=== PATIENT | male | born 1970 | race Caucasian/White ===

== ENCOUNTER 2021-12-23 07:00 | Outpatient (CLI) | payer BC, SELFPAY ==
--- NOTE | 2021-12-23 07:15 | CRLHL7_ITS ---
For Patients: As a result of the Century Cures Act, medical imaging exams and procedure reports are released immediately into your electronic medical record. You may view this report before your referring provider. If you have questions, please contact your health care provider. INDICATION: ABDOMINAL PAIN COMPARISON: none TECHNIQUE: Real time cottrell scale imaging and color Doppler analysis was performed of the right upper quadrant. FINDINGS: The patient`s liver is of normal size and has diffusely increased echogenicity. There is a normal appearance of the hepatic IVC and proximal abdominal aorta. There is no evidence of ascites. The gallbladder is absent. The common bile duct is of normal size and measures 6 mm in diameter at the level of the joan hepatis. The visualized pancreas appears normal. There is no evidence of a stone or hydronephrosis within the right kidney. The right kidney measures 12.8 cm in length. Postop changes appendectomy with scar tissue noted in the subcutaneous tissues. No incisional hernia. IMPRESSION: Hepatic steatosis. Status post cholecystectomy and appendectomy with right lower quadrant abdominal wall scar tissue. Dictated by Eleazar Moise MD @ 12/23/2021 8:48:14 AM (Electronically Signed)
== END 2021-12-23 07:01 | disposition home or self-care (01) ==
PROVIDERS: PCP Nurse Practitioner Family; Visit Provider Surgery
DX: R10.9 Unspecified abdominal pain (principal); K76.0 Fatty (change of) liver, not elsewhere classified
CPT/HCPCS: 76705

== ENCOUNTER 2022-03-10 10:43 | Outpatient (CLI) | payer BC, SELFPAY ==
[2022-03-10 10:59] LABS: Hemoglobin A1C* 6.2 % (0-5.6)
[2022-03-10 13:59] LABS: Chloride* 104 mmol/L (96-114)
[2022-03-10 14:00] LABS: Potassium* 4.1 mmol/L (3.6-5.1); Sodium* 140 mmol/L (135-149)
[2022-03-10 14:02] LABS: Creatinine* 0.9 mg/dL (0.5-1.5); Estimated Glomerular Filt Rate 102 ml/min
[2022-03-10 14:03] LABS: Blood Urea Nitrogen* 11 mg/dL (7-30); Carbon Dioxide* 24 mmol/L (20-32); Glucose* 161 mg/dL (60-115)
== END 2022-03-10 10:44 | disposition home or self-care (01) ==
PROVIDERS: PCP Nurse Practitioner Family; Visit Provider Nurse Practitioner Family
DX: E11.9 Type 2 diabetes mellitus without complications (principal); I10 Essential (primary) hypertension; Z51.81 Encounter for therapeutic drug level monitoring
CPT/HCPCS: 36415; 80048; 83036